=== PATIENT | male | born 1995 | race Hispanic/Latino ===

== ENCOUNTER 2019-08-27 22:42 | Emergency (ER) | payer OTHER ==
[2019-08-28] MEDS ORDERED: DIAZEPAM 5 MG TABLET ONE (00:27)
[2019-08-28] MEDS ORDERED: IBUPROFEN 800 MG TAB ONE (00:27)
== END 2019-08-28 01:05 | disposition home or self-care (01) ==
LOC: EDH 22:42
DX: S63.591A Other specified sprain of right wrist, initial encounter (principal); S60.222A Contusion of left hand, initial encounter; S39.012A Strain of muscle, fascia and tendon of lower back, initial encounter; Z72.0 Tobacco use; V49.49XA Driver injured in collision with other motor vehicles in traffic accident, initial encounter; Y93.89 Activity, other specified; Y92.89 Other specified places as the place of occurrence of the external cause; Y99.8 Other external cause status
CPT/HCPCS: 73110; 73130

== ENCOUNTER 2019-10-18 03:54 | Emergency (ER) | payer SELFPAY ==
[2019-10-18] MEDS ORDERED: IBUPROFEN 200 MG TAB ONE (05:02)
[2019-10-18] MEDS ORDERED: IBUPROFEN 400 MG TABLET ONE (05:02)
== END 2019-10-18 05:35 | disposition home or self-care (01) ==
LOC: EDH 03:54
DX: B34.9 Viral infection, unspecified (principal)
CPT/HCPCS: 87804